=== PATIENT | male | born 1995 | race African-American/Black ===

== ENCOUNTER 2022-01-24 10:22 | Emergency (ER) | payer OTHER ==
[2022-01-24 10:51] VITALS: BP 125/67; PULSE 70; TEMP 98.2
[2022-01-24] MEDS ORDERED: KETOROLAC TROMETHAMINE 30 MG/1 ML VIAL IM ONE (11:23)
[2022-01-24] MEDS ORDERED: KETOROLAC TROMETHAMINE 30 MG/1 ML VIAL ONE (12:01)
== END 2022-01-24 12:14 | disposition home or self-care (01) ==
LOC: JER 10:22 → JERFT 10:22
PROC: 3E0233Z Introduction of Anti-inflammatory into Muscle, Percutaneous Approach (ICD-10-PCS; principal; 2022-01-24)
DX: M79.601 Pain in right arm (principal); M79.641 Pain in right hand; M54.50 Low back pain, unspecified; V49.40XA Driver injured in collision with unspecified motor vehicles in traffic accident, initial encounter
CPT/HCPCS: 73090-TC-RT-FY; 73130-TC-RT-FY; 99284-25